=== PATIENT | male | born 1965 | race African-American/Black ===

== ENCOUNTER 2024-11-16 14:08 | Emergency (ER) | payer MEDICARE, MEDICAID ==
[~2024-11-16 14:08] MED LIST: Iopamidol-370 76% 500 ML MDV (1 ML CHARGE) ONE
[2024-11-16 16:46] LABS: #Basophils 0.05 10x3/uL (0.0-0.2); #Eosinophils 0.12 10x3/uL (0.0-0.7); #Monocytes 0.84 10x3/uL (0.11-0.59); #Neutrophils 3.46 10x3/uL (1.40-6.50); %Basophils 0.8 % (0.0-1.0); %Eosinophils 2.0 % (0.0-10.0); %Lymphocytes 21.5 % (21.0-51.0); %Monocytes 14.1 % (0.0-10.0); %Neutrophils 58.2 % (42.0-75.0); Hematocrit 35.6 % (42.0-52.0); Hemoglobin 10.8 g/dL (14.0-18.0); Mean Corpuscular Hemoglobin 29.5 pg (27.0-31.0); Mean Corpuscular Volume 97.3 fL (78.0-98.0); Platelet Count 155 10x3/uL (130-400); Red Blood Cell (RBC) Count 3.66 mill/uL (4.70-6.10); White Blood Cell (WBC) Count 5.95 10x3/uL (4.8-10.8)
[2024-11-16 17:04] LABS: ALT (SGPT) 29 U/L (Less than 45); AST (SGOT) 20 U/L (11-34); Albumin 3.1 g/dL (3.1-4.5); Alkaline Phosphatase 135 U/L (40-110); Anion Gap 22 mmol/L (10-20); BUN (Urea Nitrogen) 79 mg/dL (8.9-20.6); Bilirubin, Total 0.2 mg/dL (0.3-1.2); Calc. Creatinine Clearance 0 mL/min (70-130); Calcium 8.8 mg/dL (7.8-10.44); Carbon Dioxide 25 mmol/L (22-29); Chloride 100 mmol/L (98-107); Globulin 4.2 g/dL (2.4-3.5); Glucose 100 mg/dL (70-105); Potassium 5.9 mmol/L (3.5-5.1); Sodium 141 mmol/L (136-145)
[2024-11-16 17:06] LABS: Troponin I Less than 0.010 ng/mL (< 0.028)
[2024-11-16] MEDS ORDERED: Azithromycin 500 MG VIAL ONE (17:11)
== END 2024-11-16 19:00 | disposition home or self-care (01) ==
LOC: EDBD 14:08 → ERS 14:08
DX: J06.9 Acute upper respiratory infection, unspecified (principal); R10.9 Unspecified abdominal pain; N18.5 Chronic kidney disease, stage 5; Z99.2 Dependence on renal dialysis
CPT/HCPCS: 71275; 74177; 80053; 83880; 84484; 85025; 93005; 94760; 96365; 99284; J0456; Q9967

== ENCOUNTER 2024-12-09 09:58 | Observation (INO) | payer MEDICARE, MEDICAID ==
[2024-12-09 11:17] LABS: #Basophils 0.03 10x3/uL (0.0-0.2); #Eosinophils 0.14 10x3/uL (0.0-0.7); #Monocytes 0.52 10x3/uL (0.11-0.59); #Neutrophils 2.31 10x3/uL (1.40-6.50); %Basophils 0.7 % (0.0-1.0); %Eosinophils 3.5 % (0.0-10.0); %Lymphocytes 24.3 % (21.0-51.0); %Monocytes 12.9 % (0.0-10.0); %Neutrophils 57.4 % (42.0-75.0); Hematocrit 32.5 % (42.0-52.0); Hemoglobin 10.3 g/dL (14.0-18.0); Mean Corpuscular Hemoglobin 30.2 pg (27.0-31.0); Mean Corpuscular Volume 95.3 fL (78.0-98.0); Platelet Count 133 10x3/uL (130-400); Red Blood Cell (RBC) Count 3.41 mill/uL (4.70-6.10); White Blood Cell (WBC) Count 4.03 10x3/uL (4.8-10.8)
[2024-12-09 11:37] LABS: ALT (SGPT) 22 U/L (Less than 45); AST (SGOT) 16 U/L (11-34); Albumin 3.3 g/dL (3.1-4.5); Alkaline Phosphatase 135 U/L (40-110); Anion Gap 16 mmol/L (10-20); BUN (Urea Nitrogen) 39 mg/dL (8.4-25.7); Bilirubin, Total 0.2 mg/dL (0.3-1.2); CK (CPK) 28 U/L (30-200); Calc. Creatinine Clearance 0 mL/min (70-130); Calcium 8.1 mg/dL (7.8-10.44); Carbon Dioxide 29 mmol/L (22-29); Chloride 98 mmol/L (98-107); Globulin 3.7 g/dL (2.4-3.5); Glucose 93 mg/dL (70-105); Lipase 63 U/L (8-78); Potassium 5.1 mmol/L (3.5-5.1); Sodium 138 mmol/L (136-145)
[2024-12-09] MEDS ORDERED: Aspirin Chewable 81 MG TAB ONE (14:01)
[2024-12-09] MEDS ORDERED: Ondansetron PF 4 MG/2 ML Vial IVP PRN (16:48)
[2024-12-09] MEDS ORDERED: hydrALAZINE 20 MG/ML VIAL SLOW IVP PRN (16:48)
[2024-12-09] MEDS ORDERED: Senokot S 8.6-50 MG TAB PO PRN (16:48)
[2024-12-09] MEDS ORDERED: Acetaminophen 325 MG TAB PO PRN (16:48)
[2024-12-09] MEDS ORDERED: Melatonin 3 MG TAB PO PRN (16:48)
[2024-12-09] MEDS: Heparin 5,000 UNITS/ML VIAL SC SCH (20:27)
[2024-12-10 05:13] LABS: #Basophils 0.03 10x3/uL (0.0-0.2); #Eosinophils 0.19 10x3/uL (0.0-0.7); #Monocytes 0.54 10x3/uL (0.11-0.59); #Neutrophils 1.91 10x3/uL (1.40-6.50); %Basophils 0.8 % (0.0-1.0); %Eosinophils 5.1 % (0.0-10.0); %Lymphocytes 27.0 % (21.0-51.0); %Monocytes 14.6 % (0.0-10.0); %Neutrophils 51.4 % (42.0-75.0); Anion Gap 21 mmol/L (10-20); BUN (Urea Nitrogen) 50 mg/dL (8.4-25.7); Calc. Creatinine Clearance 12 mL/min (70-130); Calcium 8.5 mg/dL (7.8-10.44); Carbon Dioxide 23 mmol/L (22-29); Cardiac Risk 4.4 (Less than 4.5); Chloride 98 mmol/L (98-107); Cholesterol 137 mg/dl (< 200 Desired); Glucose 102 mg/dL (70-105); HDL Cholesterol 31 mg/dL (>60 Neg Risk); Hematocrit 36.5 % (42.0-52.0); Hemoglobin 11.4 g/dL (14.0-18.0); LDL Cholesterol, Calculated 46 mg/dL; Mean Corpuscular Hemoglobin 30.2 pg (27.0-31.0); Mean Corpuscular Volume 96.6 fL (78.0-98.0); Platelet Count 145 10x3/uL (130-400); Potassium 4.6 mmol/L (3.5-5.1); Red Blood Cell (RBC) Count 3.78 mill/uL (4.70-6.10); Sodium 137 mmol/L (136-145); Triglycerides 299 mg/dL (Less than 150); White Blood Cell (WBC) Count 3.71 10x3/uL (4.8-10.8)
[2024-12-10 08:12] LABS: HBSAB Concentration 20.83 mIU/mL; Hep B Core Total Ab NONREACTIVE (NonReactive); Hep B Core Total Index 0.11 S/CO (0-0.79); Hep B Surf Ag NONREACTIVE S/CO (NonReactive); Hep C IgG Ab NONREACTIVE S/CO (NonReactive); Hep C Index 0.18 S/CO (0-0.79)
[2024-12-10] MEDS: Aspirin 81 mg Enteric Coated Tablet PO SCH (09:28)
[2024-12-10] MEDS: Divalproex Sodium 125 mg Sprinkle Capsule PO SCH ×2 (09:28→12:36)
[2024-12-10] MEDS: Brimonidine Tartrate 0.2% Ophth Soln 5 ml Bottle EA EYE SCH (12:35)
[2024-12-10] MEDS: OLANZapine 5 MG TAB PO SCH (13:05)
[2024-12-10 18:19] VITALS: BP 146/78; TEMP 98
[2024-12-10] MEDS ORDERED: Divalproex Sodium 125 mg Sprinkle Capsule PO SCH ×2 (21:00)
== END 2024-12-10 19:15 | disposition home or self-care (01) ==
LOC: ERS 09:58 → 2NO 13:27
PROVIDERS: ADMIT Internal Medicine; ATTEND Internal Medicine
DX: G40.909 Epilepsy, unspecified, not intractable, without status epilepticus (principal); N18.6 End stage renal disease; D53.9 Nutritional anemia, unspecified; I07.1 Rheumatic tricuspid insufficiency; Z79.899 Other long term (current) drug therapy
CPT/HCPCS: 70450; 71045; 72170; 74018; 80048; 80053; 80061; 80164; 80185; 82140; 82550; 82962; 83690; 84484 ×2; 85025 ×2; 86704; 86706; 86803; 87340; 87428; 93005; 93306; 93971; 96372 ×2; 99285; G0378 ×3; J1644 ×2; 36415; 36416; 90935; G0257

== ENCOUNTER 2025-01-18 07:49 | Observation (INO) | payer MEDICARE, MEDICAID ==
[2025-01-18 09:49] LABS: Hematocrit 32.6 % (42.0-52.0); Hemoglobin 10.0 g/dL (14.0-18.0); Mean Corpuscular Hemoglobin 30.7 pg (27.0-31.0); Mean Corpuscular Volume 100.0 fL (78.0-98.0); Platelet Count 115 10x3/uL (130-400); Red Blood Cell (RBC) Count 3.26 mill/uL (4.70-6.10); White Blood Cell (WBC) Count 7.51 10x3/uL (4.8-10.8)
[2025-01-18 09:53] LABS: INR-International Normal Ratio 1.0; Prothrombin Time 13.8 sec (12.0-14.7)
[2025-01-18 09:54] LABS: PTT 31.2 sec (22.9-36.1)
[2025-01-18 10:16] LABS: #Basophils 0.03 10x3/uL (0.0-0.2); #Eosinophils Less than 0.03 10x3/uL (0.0-0.7); #Monocytes 0.61 10x3/uL (0.11-0.59); #Neutrophils 6.28 10x3/uL (1.40-6.50); %Basophils 0.4 % (0.0-1.0); %Eosinophils 0.0 % (0.0-10.0); %Lymphocytes 7.4 % (21.0-51.0); %Monocytes 8.1 % (0.0-10.0); %Neutrophils 83.3 % (42.0-75.0); Anisocytosis MODERATE=16-30 cells HPF (0-5); Macrocytosis SLIGHT = 6-15 cells HPF (0-5); Other Cell Types 0.9; Ovalocytes SLIGHT = 2-5 cells HPF (0-1); Platelet Adequacy Comment Platelets Normal; Polychromasia SLIGHT = 2-3 cells HPF (0-2)
[2025-01-18 10:19] LABS: Plasma Cells 0 % (0-0)
[2025-01-18 10:39] LABS: ALT (SGPT) 31 U/L (Less than 45); AST (SGOT) 23 U/L (11-34); Albumin 3.3 g/dL (3.1-4.5); Alkaline Phosphatase 127 U/L (40-110); BUN (Urea Nitrogen) 48 mg/dL (8.4-25.7); Bilirubin, Total 0.2 mg/dL (0.3-1.2); Calc. Creatinine Clearance 0 mL/min (70-130); Calcium 8.5 mg/dL (7.8-10.44); Globulin 3.3 g/dL (2.4-3.5); Glucose 132 mg/dL (70-105)
[2025-01-18 10:45] LABS: Anion Gap 18 mmol/L (10-20); Carbon Dioxide 25 mmol/L (22-29); Chloride 99 mmol/L (98-107); Potassium 6.4 mmol/L (3.5-5.1); Sodium 136 mmol/L (136-145)
[2025-01-18] MEDS ORDERED: CALCIUM GLUC 1 GM/NS 50 ML IV Bag ONE (11:01)
[2025-01-18] MEDS ORDERED: Dextrose 50% Abboject 50 ML SYRINGE ONE (11:01)
[2025-01-18] MEDS ORDERED: Acetaminophen 325 MG TAB PO PRN (13:17)
[2025-01-18 14:04] LABS: Magnesium 2.1 mg/dL (1.6-2.6)
[2025-01-18 18:22] VITALS: BMI 36.0
[2025-01-18] MEDS: Heparin 5,000 UNITS/ML VIAL SC SCH (19:42)
[2025-01-18] MEDS ORDERED: Brimonidine Tartrate 0.2% Ophth Soln 5 ml Bottle EA EYE SCH (21:00)
[2025-01-18] MEDS: Ammonium Lactate 12% Lotion 225 GM BOT TOP SCH (21:48)
[2025-01-18] MEDS: DorzolamidE/Timolol 2%/0.5% Ophth Soln 10 ml Bottle EA EYE SCH (21:48)
[2025-01-18] MEDS: Divalproex Sodium 250 MG ER.TAB PO SCH (21:49)
[2025-01-19 04:09] LABS: Anion Gap 17 mmol/L (10-20); BUN (Urea Nitrogen) 29 mg/dL (8.4-25.7); Calc. Creatinine Clearance 21 mL/min (70-130); Calcium 8.4 mg/dL (7.8-10.44); Carbon Dioxide 27 mmol/L (22-29); Chloride 96 mmol/L (98-107); Glucose 158 mg/dL (70-105); Potassium 4.0 mmol/L (3.5-5.1); Sodium 136 mmol/L (136-145)
[2025-01-19 04:14] LABS: #Basophils Less than 0.03 10x3/uL (0.0-0.2); #Eosinophils 0.03 10x3/uL (0.0-0.7); #Monocytes 0.71 10x3/uL (0.11-0.59); #Neutrophils 3.55 10x3/uL (1.40-6.50); %Basophils 0.2 % (0.0-1.0); %Eosinophils 0.6 % (0.0-10.0); %Lymphocytes 11.5 % (21.0-51.0); %Monocytes 14.5 % (0.0-10.0); %Neutrophils 72.6 % (42.0-75.0); Hematocrit 31.2 % (42.0-52.0); Hemoglobin 9.8 g/dL (14.0-18.0); Mean Corpuscular Hemoglobin 31.1 pg (27.0-31.0); Mean Corpuscular Volume 99.0 fL (78.0-98.0); Platelet Count 124 10x3/uL (130-400); Red Blood Cell (RBC) Count 3.15 mill/uL (4.70-6.10); White Blood Cell (WBC) Count 4.89 10x3/uL (4.8-10.8)
[2025-01-19] MEDS: HYDROcodone/Acetaminophen 7.5/325 mg Tablet PO PRN (08:57)
[2025-01-19] MEDS: Cholecalciferol 1,000 UNITS (25 MCG) TAB PO SCH (10:40)
[2025-01-19] MEDS: OLANZapine 5 MG TAB PO SCH (10:41)
[2025-01-19] MEDS: Sevelamer 2.4 GM PACKET PO SCH (10:45)
[2025-01-19] MEDS: EPOETIN ALFA-EPBX (ESRD) 10,000 UNITS/ML VIAL SC SCH (13:52)
[2025-01-20 11:09] VITALS: BP 107/69
[2025-01-20 16:14] VITALS: TEMP 98.1
== END 2025-01-20 16:46 | disposition home or self-care (01) ==
LOC: ERS 07:49 → ERHOLD 12:21 → 2SE 17:06
PROVIDERS: ADMIT Internal Medicine; ATTEND Internal Medicine
DX: E87.5 Hyperkalemia (principal); I12.0 Hypertensive chronic kidney disease with stage 5 chronic kidney disease or end stage renal disease; N18.6 End stage renal disease; G40.909 Epilepsy, unspecified, not intractable, without status epilepticus; D53.9 Nutritional anemia, unspecified; S42.212A Unspecified displaced fracture of surgical neck of left humerus, initial encounter for closed fracture; X58.XXXA Exposure to other specified factors, initial encounter; Z99.2 Dependence on renal dialysis; Z79.899 Other long term (current) drug therapy
CPT/HCPCS: 70450; 71045; 72125; 73060; 73090; 73502; 80048; 80053; 80164; 82550; 83735; 84146; 85025 ×2; 85610; 85730; 93005; 93880; 96372 ×4; 96374; 96375; 97535; 99285; G0378 ×4; J0613; J1644 ×3; J1815; J2270; J7999; 36415; 90935; G0257

== ENCOUNTER 2025-04-11 11:25 | Emergency (ER) | payer MEDICARE, MEDICAID ==
[2025-04-11 16:01] LABS: ALT (SGPT) 35 U/L (Less than 45); AST (SGOT) 32 U/L (11-34); Albumin 3.6 g/dL (3.1-4.5); Alkaline Phosphatase 156 U/L (40-110); Anion Gap 22 mmol/L (10-20); BUN (Urea Nitrogen) 31 mg/dL (8.4-25.7); Bilirubin, Total 0.2 mg/dL (0.3-1.2); Calc. Creatinine Clearance 0 mL/min (70-130); Calcium 8.8 mg/dL (7.8-10.44); Carbon Dioxide 26 mmol/L (22-29); Chloride 96 mmol/L (98-107); Globulin 4.4 g/dL (2.4-3.5); Glucose 85 mg/dL (70-105); Potassium 5.7 mmol/L (3.5-5.1); Sodium 138 mmol/L (136-145)
[2025-04-11 16:45] LABS: Anion Gap 13 mmol/L (10-20); BUN (Urea Nitrogen) 30 mg/dL (8.4-25.7); Calc. Creatinine Clearance 0 mL/min (70-130); Calcium 8.5 mg/dL (7.8-10.44); Carbon Dioxide 25 mmol/L (22-29); Chloride 100 mmol/L (98-107); Glucose 92 mg/dL (70-105); Potassium 4.8 mmol/L (3.5-5.1); Sodium 133 mmol/L (136-145)
== END 2025-04-11 20:30 | disposition home or self-care (01) ==
LOC: ERS 11:25
DX: R05.9 Cough, unspecified (principal); I12.0 Hypertensive chronic kidney disease with stage 5 chronic kidney disease or end stage renal disease; E11.22 Type 2 diabetes mellitus with diabetic chronic kidney disease; N18.6 End stage renal disease; Z79.899 Other long term (current) drug therapy; Z99.2 Dependence on renal dialysis
CPT/HCPCS: 71046; 80053; 83880; 84484; 87081; 87428; 87430; 93005